=== PATIENT | male | born 2000 | race Caucasian/White ===

== ENCOUNTER 2021-09-21 14:05 | Emergency (ER) | payer OTHER ==
[~2021-09-21] VITALS: Ht 167.6 cm; Wt 73.0 kg
[2021-09-21 14:07] VITALS: BP 138/75
[2021-09-21] MEDS ORDERED: ACETAMINOPHEN 325MG TABLET PO ONE (17:30)
[2021-09-21] MEDS ORDERED: LIDOCAINE HCL/EPINEPHRINE 1%-EPI 1:100,000 20 ML VIAL INFIL ONE (17:30)
[2021-09-21] MEDS ORDERED: BACITRACIN ZINC OINT UDPKT TOP ONE (17:30)
[2021-09-21] MEDS ORDERED: TETANUS, DIPHTHERIA, PERTUSSIS VAC/PF 0.5ML (>10YR OLD) IM ONE (17:30)
[2021-09-21] MEDS ORDERED: TOPUD MT (18:05)
== END 2021-09-21 18:16 | disposition home or self-care (01) ==
LOC: ER 14:05
DX: S01.81XA Laceration without foreign body of other part of head, initial encounter (principal); W18.39XA Other fall on same level, initial encounter; Y93.89 Activity, other specified; Y92.89 Other specified places as the place of occurrence of the external cause; Y99.8 Other external cause status; R11.10 Vomiting, unspecified
CPT/HCPCS: 12011; 90471; 90715; 99283; J3490

== ENCOUNTER 2021-10-01 18:08 | Emergency (ER) | payer OTHER ==
[~2021-10-01] VITALS: Ht 172.7 cm; Wt 82.0 kg
[~2021-10-01 18:08] MED LIST: TOPUD MT
[2021-10-01 21:31] VITALS: BP 121/79
== END 2021-10-01 21:34 | disposition home or self-care (01) ==
LOC: ER 18:08
DX: Z48.02 Encounter for removal of sutures (principal); R03.0 Elevated blood-pressure reading, without diagnosis of hypertension
CPT/HCPCS: 99281; Z7610

== ENCOUNTER 2022-04-22 14:31 | Emergency (ER) | payer MEDICAID, OTHER ==
[~2022-04-22] VITALS: Ht 172.7 cm; Wt 84.0 kg
[2022-04-22] MEDS ORDERED: BACITRACIN ZINC OINT UDPKT TOP ONE (15:30)
[2022-04-22] MEDS ORDERED: TETANUS, DIPHTHERIA, PERTUSSIS VAC/PF 0.5ML (>10YR OLD) IM ONE (15:30)
[2022-04-22] MEDS ORDERED: IBUPROFEN 600MG TABLET PO ONE (15:30)
[2022-04-22 15:38] VITALS: BP 132/75
[2022-04-22] MEDS ORDERED: BO1 TP (16:10)
[2022-04-22] MEDS ORDERED: IBUP-2029 MT (16:10)
== END 2022-04-22 16:29 | disposition home or self-care (01) ==
LOC: ER 14:31
DX: S51.811A Laceration without foreign body of right forearm, initial encounter (principal); W01.118A Fall on same level from slipping, tripping and stumbling with subsequent striking against other sharp object, initial encounter; Y93.89 Activity, other specified; Y92.89 Other specified places as the place of occurrence of the external cause
CPT/HCPCS: 12005; 73090; 90471; 90715; 99283

== ENCOUNTER 2022-05-04 14:25 | Emergency (ER) | payer MEDICAID ==
[~2022-05-04] VITALS: Ht 172.7 cm; Wt 80.0 kg
[~2022-05-04 14:25] MED LIST changes: +BO1 TP; +IBUP-2029 MT
[2022-05-04 14:27] VITALS: BP 145/85
== END 2022-05-04 19:30 | disposition home or self-care (01) ==
LOC: ER 14:25
DX: Z48.02 Encounter for removal of sutures (principal); R03.0 Elevated blood-pressure reading, without diagnosis of hypertension
CPT/HCPCS: 99281